=== PATIENT | female | born 1965 | race American Indian/Alaskan Native ===

== ENCOUNTER 2017-11-29 11:27 | Emergency (ER) | payer BC ==
[2017-11-29 11:38] VITALS: RESP 18; TEMP 98.3; BMI 27.3
--- NOTE | 2017-11-29 12:06 | ED PDOC ---
Arrival/HPI - General Time Seen by Provider: 11/29/17 11:39 Historian: Patient - History of Present Illness Narrative History of Present Illness (Text): 11/29/17 12:05 A 52 year old female, whose past medical history includes hypertension, presents to the emergency department complaining of right sided chest pain for 3 days. Patient describes the pain as a warm throbbing sensation that radiates to her back. She notes her pain is exacerbated at night when laying down flat. Patient denies any recent injuries, fever, chills, nausea, vomiting, abdominal pain, shortness of breath, cough or any other complaints. PMD: Dr. Cobian Time/Duration: Other (3 days) Symptom Course: Unchanged Quality: Throbbing (warm) Context: Home Past Medical History - Provider Review Nursing Documentation Reviewed: Yes Family/Social History - Physician Review Nursing Documentation Reviewed: Yes Family/Social History: No Known Family HX Allergies/Home Meds Allergies/Adverse Reactions: Allergies Penicillins Allergy (Verified 11/29/17 12:08) RASH Review of Systems - Physician Review All systems were reviewed & negative as marked: Yes - Review of Systems Constitutional: absent: Fevers, Night Sweats Respiratory: absent: SOB, Cough Cardiovascular: Chest Pain (right sided) Gastrointestinal: absent: Abdominal Pain, Nausea, Vomiting Physical Exam Vital Signs Reviewed: Yes Vital Signs Temp Pulse Resp BP Pulse Ox 11/29/17 16:50 78 18 124/76 98 11/29/17 11:38 98.3 F 79 18 158/71 H 100 Temperature: Afebrile Blood Pressure: Hypertensive Pulse: Regular Respiratory Rate: Normal Appearance: Positive for: Well-Appearing, Non-Toxic, Comfortable Pain Distress: None Mental Status: Positive for: Alert and Oriented X 3 - Systems Exam Head: Present: Atraumatic, Normocephalic Pupils: Present: PERRL Extroacular Muscles: Present: EOMI Conjunctiva: Present: Normal Mouth: Present: Moist Mucous Membranes Neck: Present: Normal Range of Motion Respiratory/Chest: Present: Clear to Auscultation, Good Air Exchange, Other ( Right sided chest pain when asked to rotate torso to the left). No: Respiratory Distress, Accessory Muscle Use, Tender to Palpation Cardiovascular: Present: Regular Rate and Rhythm, Normal S1, S2. No: Murmurs Abdomen: Present: Normal Bowel Sounds. No: Tenderness, Distention, Peritoneal Signs Back: Present: Normal Inspection. No: Midline Tenderness, Paraspinal Tenderness Upper Extremity: Present: Normal Inspection. No: Cyanosis, Edema Lower Extremity: Present: Normal Inspection. No: Edema Neurological: Present: GCS=15, CN II-XII Intact, Speech Normal Skin: Present: Warm, Dry, Normal Color. No: Rashes Psychiatric: Present: Alert, Oriented x 3, Normal Insight, Normal Concentration Medical Decision Making ED Course and Treatment: 11/29/17 12:05 Impression: A 52 year old female with right sided chest pain Differential Diagnosis included but are not limited to: Chest pain rule out Cardiac vs. Musculoskeletal Plan: -- Chest xray -- EKG -- Labs -- Aspirin -- Reassess and disposition Progress Notes: EKG shows NSR at [address]-segment elevations, normal intervals, normal axis. Interpreted by me 11/29/17 15:23 Troponin negative x 1. Patient comfortable and in no acute distress. HEART 2 ( age 1, risk factor 1). Will repeat troponin post 3 hours and ekg. Report Date : 11/29/2017 15:48:33 Procedure: Chest xray Dictator : Arturo Ghosh MD IMPRESSION:No active disease. 11/29/17 16:43 Repeat EKG shows NSR at 66 BPM with changes from prior. Interpreted by me. 11/29/17 16:45 Based on HEART Score patient is low probability for cardiac. Troponin negative x 2 and EKG normal x 2. On re-evaluation, patient feels better and states her pain has fully resolved. I have discussed the results and plan with the patient , who expresses understanding. Patient in agreement with plan to be discharged home. Patient is stable for discharge. Patient was instructed to follow up with PMD and referred to humanities teacher Dr. Ho for further cardiac work-up. - Lab Interpretations Lab Results: 11/29/17 12:30 11/29/17 12:30 Lab Results 11/29/17 15:52: Lactate Dehydrogenase 426, Total Creatine Kinase 134, Troponin I < 0.01 11/29/17 12:30: Sodium 141, Potassium 4.6, Chloride 102, Carbon Dioxide 29, Anion Gap 14, BUN 15, Creatinine 0.8, Est GFR ( Amer) > 60, Est GFR (Non- Af Amer) > 60, Random Glucose 98, Calcium 10.2, Magnesium 1.9, Total Bilirubin 0.9, AST 31, ALT 38, Alkaline Phosphatase 56, Lactate Dehydrogenase 499, Total Creatine Kinase 143, Troponin I < 0.01, Total Protein 7.7, Albumin 4.0, Globulin 3.7, Albumin/Globulin Ratio 1.1 11/29/17 12:30: WBC 5.0, RBC 4.37, Hgb 11.8 L, Hct 36.0, MCV 82.4, MCH 27.0, MCHC 32.8, RDW 13.5, Plt Count 203, MPV 9.2, Gran % 61.0, Lymph % (Auto) 31.0, [place] % (Auto) 6.2 H, Eos % (Auto) 1.6, Baso % (Auto) 0.2, Gran # 3.07, Lymph # ( Auto) 1.6, [place] # (Auto) 0.3, Eos # (Auto) 0.1, Baso # (Auto) 0.01 I have reviewed the lab results: Yes - RAD Interpretation Radiology Orders: 11/29/17 12:09 CHEST PORTABLE [RAD] Stat - Medication Orders Current Medication Orders: Discontinued Medications Aspirin (Aspirin) 325 mg PO STAT STA Stop: 11/29/17 12:10 Last Admin: 11/29/17 12:41 Dose: 325 mg - Scribe Statement The provider has reviewed the documentation as recorded by the Ary Jordan Provider Scribe Attestation: All medical record entries made by the Scribe were at my direction and personally dictated by me. I have reviewed the chart and agree that the record accurately reflects my personal performance of the history, physical exam, medical decision making, and the department course for this patient. I have also personally directed, reviewed, and agree with the discharge instructions and disposition. Disposition/Present on Arrival - Present on Arrival Any Indicators Present on Arrival: No History of DVT/PE: No History of Uncontrolled Diabetes: No Urinary Catheter: No History of Decub. Ulcer: No - Disposition Have Diagnosis and Disposition been Completed?: Yes Diagnosis: Chest pain Disposition: HOME/ ROUTINE Disposition Time: 16:45 Patient Plan: Discharge Condition: IMPROVED Discharge Instructions (ExitCare): Chest Pain (ED) Additional Instructions: Ms Espinal, thank you for letting us take care of you today. Your provider was Dr. Fenton. You were treated for Chest Pain. The emergency medical care you received today was directed at your acute symptoms. If you were prescribed any medication, please fill it and take as directed. It may take several days for your symptoms to resolve. Return to the Emergency Department if your symptoms worsen, do not improve, or if you have any other problems. Please contact your doctor or call one of the physicians/clinics you have been referred to that are listed on the Patient Visit Information form that is included in your discharge packet. Bring any paperwork you were given at discharge with you along with any medications you are taking to your follow up visit. Our treatment cannot replace ongoing medical care by a primary care provider (PCP) outside of the emergency department. Thank you for allowing the [facility] team to be part of your care today. If you had an X-Ray or CT scan: A Radiologist will review the ED reading if any change in treatment is needed we will contact you. If you had a blood, urine, or wound culture: It will take several days for the results, if any change in treatment is needed we will contact you. If you had an STI test: It will take 48 hours for the results. Please call after 1 week if you have not heard back. Prescriptions: Ibuprofen [Motrin] 600 mg PO Q6 PRN #30 tab PRN Reason: Pain, Moderate (4-7) Referrals: Amina Cobian MD [Primary Care Provider] - Follow up with primary Asia Ho MD [Staff Provider] - Follow up with primary Forms: [employer] (Croatian), WORK NOTE
[2017-11-29 12:42] LABS: BASO # 0.01 K/mm3 (0.0-2.0); BASO % 0.2 % (0.0-3.0); EOS # 0.1 (0.0-0.7); EOS % 1.6 % (1.5-5.0); GRAN # 3.07 (1.4-6.5); HEMOGLOBIN 11.8 g/dL (12.0-16.0); LYMPH # 1.6 (1.2-3.4); MEAN CELL VOLUME 82.4 fl (80.0-105.0); MEAN CORPUSCULAR HGB CONC 32.8 g/dl (31.0-37.0); MEAN PLATELET VOLUME 9.2 fl (7.0-11.0); MONO # 0.3 (0.1-0.6); MONO % 6.2 % (1.0-6.0); RBC 4.37 10^6/uL (3.5-6.1); RED CELL DISTRIBUTION WIDTH 13.5 % (11.5-14.5)
[2017-11-29 12:51] LABS: ALB/GLOB RATIO 1.1 (1.1-1.8); ALT/SGPT 38 U/L (7-56); AST/SGOT 31 U/L (14-36); BLOOD UREA NITROGEN 15 mg/dL (7-21); CALCIUM 10.2 mg/dL (8.4-10.5); GFR AFRICAN-AMERICAN > 60; GFR NON-AFRICAN AMERICAN > 60; MAGNESIUM 1.9 mg/dL (1.7-2.2)
[2017-11-29 13:02] LABS: TROPONIN I < 0.01 ng/mL
--- NOTE | 2017-11-29 15:30 | CARD ---
APPROVED REPORT EKG Measurement Heart [id number] <Conclusion> Sinus rhythm Minimal voltage criteria for LVH, may be normal variant Leftward axis PRWP possible due to laed positioning,
--- NOTE | 2017-11-29 15:50 | RAD ---
HISTORY: Chest pain. COMPARISON: No prior. FINDINGS: LUNGS: No active pulmonary disease. PLEURA: No significant pleural effusion identified, no pneumothorax apparent. CARDIOVASCULAR: Normal. OSSEOUS STRUCTURES: No significant abnormalities. VISUALIZED UPPER ABDOMEN: Normal. OTHER FINDINGS: None. IMPRESSION: No active disease.
[2017-11-29 16:24] LABS: TROPONIN I < 0.01 ng/mL
[2017-11-29 16:50] VITALS: BP 124/76; PULSE 78; O2SAT 98
--- NOTE | 2017-11-30 10:20 | CARD ---
APPROVED REPORT EKG Measurement Heart [id number] <Conclusion> Normal sinus rhythm LVH by voltage PRWP No change
== END 2017-11-29 16:50 | disposition home or self-care (01) ==
LOC: ED 11:27
DX: R07.9 Chest pain, unspecified (principal); I10 Essential (primary) hypertension